=== PATIENT | female | born 1965 | race Caucasian/White ===

== ENCOUNTER → 2018-06-02 | Outpatient (REF) | payer BC | LOC: M LAB LCGH 13:51 | PROVIDERS: ATTEND Nurse Practitioner Adult Health | DX: Z12.4 Encounter for screening for malignant neoplasm of cervix (principal) ==

== ENCOUNTER → 2018-12-20 | Outpatient (REF) | payer BC ==
[2018-12-23 14:27] LABS: HPV HYBRID CAPTURE II Positive (Negative)
== END ==
LOC: M LAB LCGH 11:53
PROVIDERS: ATTEND Nurse Practitioner Adult Health
DX: Z01.42 Encounter for cervical smear to confirm findings of recent normal smear following initial abnormal smear (principal)
CPT/HCPCS: 87624; G0123

== ENCOUNTER → 2019-01-20 | Outpatient (REF) | payer BC | LOC: M LAB LCGH 18:05 | DX: Z12.4 Encounter for screening for malignant neoplasm of cervix (principal) ==

== ENCOUNTER → 2020-03-11 | Outpatient (REF) | payer BC | LOC: M LAB REF 17:01 | PROVIDERS: ATTEND Physician Assistant | DX: D48.9 Neoplasm of uncertain behavior, unspecified (principal) ==

== ENCOUNTER → 2020-04-05 | Outpatient (REF) | payer BC | LOC: M LAB REF 13:34 | PROVIDERS: ATTEND Physician Assistant | DX: L57.0 Actinic keratosis (principal) ==

== ENCOUNTER → 2021-10-31 | Outpatient (REF) | payer BC | LOC: M SFHCDERM 15:27 | PROVIDERS: ATTEND Physician Assistant | DX: L57.0 Actinic keratosis (principal) ==